=== PATIENT | female | born 1960 | race Caucasian/White ===

== ENCOUNTER 2017-02-25 10:32 | Observation (INO) | payer OTHER ==
--- NOTE | 2017-02-25 11:14 | PDOC ---
History of Present Illness - General Chief Complaint: Respiratory Stated Complaint: PAIN Time Seen by Provider: 02/25/17 11:10 History Source: Patient - History of Present Illness Initial Comments: 02/25/17 12:01 Patient is a 56 y.o. female with a PMH of Asthma (no intubations, 1 hospitalization 15 years previous) who presents to our ED c/o 3 day h/o intermittent dyspnea (not related to exertion) was well as productive (greenish sputum) cough. Patient denies any subjective fevers/chills as well as chest pain. Patient notes recent travel on 02/19/17 from the [place] as well as asthma treatment earlier this month with 5 day course of steroid completed 02/12/17. Allergy: Penicillin Past History - Past Medical History Allergies/Adverse Reactions: Allergies Allergy/AdvReac Type Severity Reaction Status Date / Time Penicillins Allergy Verified 02/25/17 10:49 Home Medications: Ambulatory Orders Azithromycin [Zithromax -] 250 mg PO DAILY 4 Days #4 tablet 02/25/17 - Suicide/Smoking/Psychosocial Hx Smoking History: Never smoked Review of Systems - Review of Systems Constitutional: No: Chills, Fever Respiratory: Yes: Shortness of Breath, Productive cough Cardiac (ROS): No: Chest Pain ABD/GI: No: Constipated, Diarrhea, Nausea, Vomiting *Physical Exam - Vital Signs Last Vital Signs Temp Pulse Resp BP Pulse Ox 98.6 F 94 H 20 177/93 95 02/25/17 10:49 02/25/17 10:49 02/25/17 10:49 02/25/17 10:49 02/25/17 10:49 - Physical Exam General Appearance: Yes: Nourished, Obese HEENT: positive: EOMI, ADDI Neck: positive: Tender, Supple. negative: Lymphadenopathy (R), Lymphadenopathy (L) Respiratory/Chest: positive: Lungs Clear, Normal Breath Sounds. negative: Crackles, Rales, Rhonchi, Wheezing Cardiovascular: positive: S1, S2 ED Treatment Course - LABORATORY CBC & Chemistry Diagram: 02/25/17 11:55 02/25/17 11:55 Medical Decision Making - Medical Decision Making 02/25/17 12:33 Patient is a 56 y.o. female who presents to the ED c/o 3 day h/o productive cough + dyspnea. Initial clinical suspicion for pneumonia vs. bronchitis, less likely asthma exacerbation as patient's lungs CLTA B/L. PERC 1+ w/ h/o recent travel + increased estrogen 2/2 to menopause. Will obtain CXR + D-dimer. Reassess. 02/25/17 14:03 CXR shows no infiltrate/no consolidation. D-dimer 739. Will send for CTA. Patient and patient's partner @ bedside counseled on plan of care. 02/25/17 17:42 CTA negative for PE, however poor contrast 2/2 to patient's girth. Patient was ready for D/C however patient tachycardic on 2 readings-- likely 2/2 to asthma exacerbation. Will give Mg+ Steroids + IV NS and admit for observation. *DC/Admit/Observation/Transfer Diagnosis at time of Disposition: Bronchitis - Discharge Dispostion Disposition: HOME Condition at time of disposition: Good Admit: No - Prescriptions Prescriptions: Azithromycin [Zithromax -] 250 mg PO DAILY 4 Days #4 tablet - Referrals - Patient Instructions Printed Discharge Instructions: DI for Acute Bronchitis - Post Discharge Activity
[2017-02-25] MEDS ORDERED: SODIUM CHLORIDE 0.9% 1000 ML INFUS.BAG IV ONE (11:16)
--- NOTE | 2017-02-25 12:03 | PDOC ---
Attending Attestation - Resident Resident Name: Samina Wynne - ED Attending Attestation I have performed the following: I have examined & evaluated the patient, The case was reviewed & discussed with the resident, I agree w/resident's findings & plan, Exceptions are as noted - HPI HPI: 02/25/17 12:14 56yo F hx asthma (on daily advair, steroids/antibiotics multiple times per year , last admitted 20yrs ago, no intubatons) p/w prod cough, and SOB. No fevers or CP. Recent travel 02/19 from . Last asthma exacerbation was 02/09/17, got 5 days of steroids. Tried albuterol at home with no improvement, but states pump is nearly empty. No fevers or chills. No CP, abd pain, n/v/d, LE swelling or calf pain. - Physicial Exam PE: 02/25/17 13:31 GENERAL: Awake, alert, and fully oriented, in no acute distress. Obese. HEAD: No signs of trauma EYES: PERRLA, EOMI, sclera anicteric, conjunctiva clear ENT: Auricles normal inspection, hearing grossly normal, nares patent, oropharynx clear without exudates. Moist mucosa NECK: Normal ROM, supple, no lymphadenopathy, JVD, or masses LUNGS: Breath sounds equal, clear to auscultation bilaterally. No wheezes, and no crackles HEART: Regular rate and rhythm, normal S1 and S2, no murmurs, rubs or gallops ABDOMEN: Soft, nontender, normoactive bowel sounds. No guarding, no rebound. No masses EXTREMITIES: Normal range of motion, no edema. No clubbing or cyanosis. No cords, erythema, or tenderness. No calf tenderness NEUROLOGICAL: Normal speech, cranial nerves intact, negative pronator drift, 5/ 5 strength in all 4 extremities, normal sensation to light touch in all 4 extremities, normal cerebellar exam, normal gait, normal reflexes and tone SKIN: Warm, Dry, normal turgor, no rashes or lesions noted. - Medical Decision Making 02/25/17 13:31 56-year-old female with a history of asthma presents with shortness of breath and cough. Vitals unremarkable. Exam unremarkable, patient has clear lungs. Symptoms are likely due to viral syndrome and possible bronchitis vs PNA. Given recent travel, PE is on the differential. Will obtain dimer. 02/25/17 22:11 dimer +, CT negative for PE but reveals multiple nodules and LAD. Results discussed w patients. Pt reported feeling better and lungs sounded clear, however upon vitals recheck, pt was tachycardic to 115 and hypoxic to 94%. As such, we prescribed nebs and steroids and admitted the patient to obs for further management
[2017-02-25 12:11] LABS: BASO % 0.7 % (0-2.0); EOS % 1.9 % (0-4.5); HEMATOCRIT 50.4 % (32.4-45.2); HEMOGLOBIN 16.1 GM/dL (10.7-15.3); LYMPH % 15.7 % (8-40); MCH 29.5 pg (25.7-33.7); MEAN CELL VOLUME 92.3 fl (80-96); MEAN PLT VOLUME 8.6 fl (7.5-11.1); NEUT % 66.7 % (42.8-82.8); PLATELET COUNT 250 K/MM3 (134-434); RBC 5.45 M/mm3 (3.60-5.2); WHITE BLOOD COUNT 7.2 K/mm3 (4.0-10.0)
[2017-02-25 12:22] LABS: CHLORIDE 104 mmol/L (98-107); POTASSIUM 4.6 mmol/L (3.5-5.1); SODIUM 139 mmol/L (136-145)
[2017-02-25 12:26] LABS: ALBUMIN 3.8 g/dl (3.4-5.0); ANION GAP 8 (8-16); BLOOD UREA NITROGEN 13 mg/dL (7-18); CALCIUM 8.9 mg/dL (8.5-10.1); CO2 27 mmol/L (21-32); GLUCOSE,RANDOM 94 mg/dL (74-106)
[2017-02-25 12:28] LABS: SGOT/AST 26 U/L (15-37)
[2017-02-25 12:38] LABS: ALK PHOS 103 U/L (45-117); BILIRUBIN,TOTAL 0.8 mg/dL (0.2-1.0); SGPT/ALT 31 U/L (12-78); TOT PROT 7.7 g/dl (6.4-8.2)
--- NOTE | 2017-02-25 16:12 | EKG ---
Test Reason : Blood Pressure : / mmHG Vent. Rate : 088 BPM Atrial Rate : 088 BPM P-R Int : 170 ms QRS Dur : 084 ms QT Int : 366 ms P-R-T Axes : 032 -08 103 degrees QTc Int : 442 ms NORMAL SINUS RHYTHM POSSIBLE LEFT ATRIAL ENLARGEMENT LEFT VENTRICULAR HYPERTROPHY WITH REPOLARIZATION ABNORMALITY ABNORMAL ECG NO PREVIOUS ECGS AVAILABLE Confirmed by CLAY LARA MD ([id number]) on 02/25/2017 4:12:33 PM Referred By: Confirmed By:CLAY LARA MD
[2017-02-25] MEDS ORDERED: AZITHROMYCIN 250 MG TABLET PO ONE (17:22)
[2017-02-25] MEDS ORDERED: MAGNESIUM SULF 50% (8.12 MEQ/2 ML-1 GM VIAL) IVPB ONE (17:32)
[2017-02-25] MEDS ORDERED: SODIUM CHLORIDE 0.9% 500 ML INFUS.BAG IV ONE (17:32)
[2017-02-25] MEDS ORDERED: methylPREDNISolone NA SUCC 40 MG/1 ML VIAL IVPUSH ONE (17:33)
[2017-02-25] MEDS ORDERED: methylPREDNISolone NA SUCC 125 MG/2 ML VIAL IVPB ONE (17:34)
[2017-02-25] MEDS ORDERED: AZITHROMYCIN 500 MG TABLET ONE (19:13)
[2017-02-25] MEDS ORDERED: methylPREDNISolone NA SUCC 125 MG/2 ML VIAL ONE (19:14)
[2017-02-25] MEDS ORDERED: MAGNESIUM SULF 50% (8.12 MEQ/2 ML-1 GM VIAL) ONE (19:14)
[2017-02-25] MEDS ORDERED: ALBUTEROL SO4 18 GM HFA INHALER IH PRN (22:51)
--- NOTE | 2017-02-25 22:54 | PN ---
Teaching Attending Note Name of Resident: Thao Camargo ATTENDING PHYSICIAN STATEMENT I saw and evaluated the patient. I reviewed the resident's note and discussed the case with the resident. I agree with the resident's findings and plan as documented. SUBJECTIVE: 56 year old female with history of asthma and JAYLENE presents with wheeing and SOB No prior history of intubation OBJECTIVE: Vital Signs Temperature 98.6 F 02/25/17 10:49 Pulse Rate 94 H 02/25/17 10:49 Respiratory Rate 20 02/25/17 10:49 Blood Pressure 177/93 02/25/17 10:49 O2 Sat by Pulse Oximetry (%) 95 02/25/17 10:49 CVS S1 S2 WNL RS poor air entry b/l no wheeing CBC, BMP 02/25/17 11:55 02/25/17 11:55 ASSESSMENT AND PLAN: Acute asthma exacerbation likely precipitated by URI - nebs around the clock - O2 - Steroids PO and taper - peek flow in am ( baseline 325) Pulmonary nodule and b/l hilar lymphadenopathy ( possibly reactive) - outpatient follow up and imaging in 3 month
[2017-02-25] MEDS ORDERED: ALBUTEROL SO4 0.083% IH SOL 2.5 MG/3 ML VIAL.NEB. NEB PRN (22:56)
[2017-02-25] MEDS ORDERED: IPRATROPIUM BR 0.02% 0.5 MG/2.5 ML VIAL.NEB. NEB PRN (22:56)
[2017-02-25] MEDS ORDERED: ALBUTEROL SO4 2.5/IPRATROPIUM 0.5 INH SOL 3 ML VIAL.NEB. NEB PRN (23:00)
--- NOTE | 2017-02-25 23:00 | HP ---
CHIEF COMPLAINT: chest tightness, productive cough PCP: HISTORY OF PRESENT ILLNESS: 56 y/o F with PMH asthma (dx 25 yrs ago; never hospitalized, never intubated), past respiratory infection tx with azithromycin (April 2016 in [place]), who presented to the ED with chest tightness and productive cough for the past three days. As per pt, chest tightness began suddenly three days ago and was mildly alleviated with extra puffs of her seratide inhaler. During this time, pt also endorsed pale green sputum that became dark green/brown, however pt denied hemoptysis. Pt recently traveled here from the [place] (8 hr flight). Denied MAYERS, fever, chills, or changes in urinary or bowel function. ER course was notable for: (1) Zithromax 500mg x 1 (2) Solumedrol 40mg IVP x 1, solumedrol 125mg IVPB x 1 (3) CTA: no evidence central PE, no peripheral PE Recent Travel: yes; from the . 8 hr flight Returned February 19, 2017 PAST MEDICAL HISTORY: asthma (dx 25 yrs ago; never hospitalized, never intubated ), past respiratory infection tx with azithromycin (April 2016 in ) PAST SURGICAL HISTORY: none Social History: Smoking:denies Alcohol: socially Drugs: denies Family History: Father- dementia, DM. mother : arthritis Allergies Penicillins Allergy (Verified 02/25/17 10:49) allergic rxn: emesis, rash HOME MEDICATIONS: Home Medications Medication Instructions Recorded Albuterol Sulfate Inhaler - 1 - 2 inh PO QID PRN 02/25/17 [Ventolin Hfa Inhaler -] Azithromycin [Zithromax -] 250 mg PO DAILY 4 Days #4 tablet 02/25/17 Beclomethasone Dipropionate 25 gm NS BID 02/25/17 [Beconase Aq] Salmeterol/Fluticasone [Advair 1 inh PO BID 02/25/17 500Mcg/50Mcg] REVIEW OF SYSTEMS CONSTITUTIONAL: Absent: fever, chills, diaphoresis, generalized weakness, malaise, loss of appetite, weight change HEENT: Absent: rhinorrhea, nasal congestion, throat pain, throat swelling, difficulty swallowing, mouth swelling, ear pain, eye pain, visual changes CARDIOVASCULAR: Absent: chest pain, syncope, palpitations, irregular heart rate, lightheadedness , peripheral edema RESPIRATORY: +cough, SOB Absent: cough, shortness of breath, dyspnea with exertion, orthopnea, wheezing, stridor, hemoptysis GASTROINTESTINAL: Absent: abdominal pain, abdominal distension, nausea, vomiting, diarrhea, constipation, melena, hematochezia GENITOURINARY: Absent: dysuria, frequency, urgency, hesitancy, hematuria, flank pain, genital pain MUSCULOSKELETAL: Absent: myalgia, arthralgia, joint swelling, back pain, neck pain SKIN: Absent: rash, itching, pallor HEMATOLOGIC/IMMUNOLOGIC: Absent: easy bleeding, easy bruising, lymphadenopathy, frequent infections ENDOCRINE: Absent: unexplained weight gain, unexplained weight loss, heat intolerance, cold intolerance NEUROLOGIC: Absent: headache, focal weakness or paresthesias, dizziness, unsteady gait, seizure, mental status changes, bladder or bowel incontinence PSYCHIATRIC: Absent: anxiety, depression, suicidal or homicidal ideation, hallucinations. PHYSICAL EXAMINATION Vital Signs - 24 hr 02/25/17 10:49 Temperature 98.6 F Pulse Rate 94 H Respiratory 20 Rate Blood Pressure 177/93 O2 Sat by Pulse 95 Oximetry (%) GENERAL: Sitting comfortably on side of bed. Awake, alert, and fully oriented, in no acute distress. HEAD: Normal with no signs of trauma. EYES: Pupils equal, round and reactive to light, extraocular movements intact, sclera anicteric, conjunctiva clear. NECK: Normal range of motion, supple without lymphadenopathy, JVD, or masses. LUNGS: Breath sounds equal, clear to auscultation bilaterally. No wheezes, and no crackles. No accessory muscle use. HEART: Regular rate and rhythm, normal S1 and S2 without murmur, rub or gallop. ABDOMEN: Soft, obese, nontender, not distended, normoactive bowel sounds, no guarding, no rebound, no masses. MUSCULOSKELETAL: Normal range of motion at all joints. No bony deformities or tenderness. No CVA tenderness. LOWER EXTREMITIES: 2+ posterior tibial pulses, warm, well-perfused. No calf tenderness. 1+ pitting edema in lower extremities NEUROLOGICAL: Cranial nerves II-XII intact. Laboratory Results - last 24 hr 02/25/17 02/25/17 02/25/17 11:55 11:55 11:55 WBC 7.2 RBC 5.45 H Hgb 16.1 H Hct 50.4 H MCV 92.3 MCH 29.5 MCHC 32.0 RDW 17.0 H Plt Count 250 MPV 8.6 Neutrophils % 66.7 Lymphocytes % 15.7 Monocytes % 15.0 H Eosinophils % 1.9 Basophils % 0.7 D-Dimer 739 H Sodium 139 Potassium 4.6 Chloride 104 Carbon Dioxide 27 Anion Gap 8 BUN 13 Creatinine 1.0 Creat Clearance w eGFR 57.78 Random Glucose 94 Calcium 8.9 Total Bilirubin 0.8 AST 26 ALT 31 Alkaline Phosphatase 103 Total Protein 7.7 Albumin 3.8 Micro -Flu swab: negative Radio -CXR: without acute pathology -CTA: no evidence central PE, no peripheral PE, nonspecific enlarged hilar and mediastinal LN's. nonspecific 0.4 cm LLL pulm nodule ASSESSMENT/PLAN: #asthma exacerbation 2/2 URI, bronchitis -peak flow measurement -02 as needed -duonebs q4h PRN -continue home meds: seratide BID, beconase BID, ventolin PRN -prednisone 40mg PO qd. start prednisone taper #LLL pulm nodule -outpatient f/u #Prophylaxis DVT: early ambulation GI: protonix 20mg qd #F/E/N -monitor electrolytes -sodium controlled diet #Disposition -observation Visit type - Emergency Visit Emergency Visit: Yes ED Registration Date: 02/25/17 Care time: The patient presented to the Emergency Department on the above date and was hospitalized for further evaluation of their emergent condition. - New Patient This patient is new to me today: Yes Date on this admission: 02/25/17 - Critical Care Critical Care patient: No
[2017-02-26] MEDS ORDERED: PANTOPRAZOLE 20 MG TABLET (FP) PO SCH (10:00)
[2017-02-26] MEDS ORDERED: FLUTICASONE PROP 0.05% 16 GM NASAL SPRAY NS SCH (10:00)
[2017-02-26] MEDS ORDERED: BUDESONIDE/FORMETEROL FUMARATE 160/4.5 mcg INHALER IH SCH (10:00)
[2017-02-26] MEDS ORDERED: predniSONE 20 MG TABLET (UD) PO SCH (10:00)
[2017-02-26] MEDS ORDERED: AZITHROMYCIN IVPB 250 MG in DEXTROSE 5%-WATER - 250 ML IVPB ONE (10:06)
[2017-02-26 12:26] VITALS: PULSE 108
--- NOTE | 2017-02-26 14:04 | PN ---
Teaching Attending Note Name of Resident: Dimitri Gonzalez ATTENDING PHYSICIAN STATEMENT time of evaluation: 9:30 AM I saw and evaluated the patient. I reviewed the resident's note and discussed the case with the resident. I agree with the resident's findings and plan as documented. SUBJECTIVE: Patient seen and examined. breathing markedly improved, eager to go home. OBJECTIVE: Vital Signs Period Temp Pulse Resp BP Sys/Garcia Pulse Ox Last 24 Hr 97.8 F-98.2 F 80-108 20-20 151-184/74-94 91-94 Intake & Output 02/23/17 02/24/17 02/25/17 02/26/17 23:59 23:59 23:59 23:59 Weight 300 lb General: sitting in bed in no acute distress Chest: good air entry bilaterally, no rales or wheezing appreciated Abdomen: soft, obese, NT extremities: obese, no edema Home Medication List Medication Instructions Recorded Confirmed Type Albuterol Sulfate Inhaler - 1 - 2 inh PO QID PRN 02/25/17 02/25/17 History [Ventolin HFA Inhaler -] Active Medications Generic Name Dose Route Start Last Admin Trade Name Freq PRN Reason Stop Dose Admin Albuterol Sulfate 2 puff 02/25/17 22:51 Ventolin Hfa Inhaler - IH Q6H PRN SHORTNESS OF BREATH Albuterol/Ipratropium 1 amp 02/25/17 23:00 Duoneb - NEB Q4H PRN SHORTNESS OF BREATH Budesonide/Formoterol Fumarate 2 puff 02/26/17 10:00 02/26/17 10:19 Symbicort 160/4.5mcg - IH Not Given BID MAUREEN Fluticasone Propionate 1 spray 02/26/17 10:00 02/26/17 10:19 Flonase - NS Not Given BID MAUREEN Pantoprazole Sodium 20 mg 02/26/17 10:00 02/26/17 10:19 Protonix - PO 20 mg DAILY MAUREEN Administration Prednisone 40 mg 02/26/17 10:00 02/26/17 10:19 Deltasone - PO 40 mg DAILY MAUREEN Administration Laboratory Results - last 24 hr 02/26/17 02/26/17 02/26/17 02:50 06:44 12:28 POC Glucometer 174.15700 124 148.39232 Microbiology 02/25/17 11:55 Nasopharyngeal Swab Influenza Types A,B Antigen (NGOC) - Final 02/25/17 11:55 Nasopharyngeal Swab - Final ASSESSMENT AND PLAN: -Acute asthma exacerbation -URI like illness -Morbid obesity Plan: oxygenating well on room air with ambulation. symptoms improved. D/c on prednisone taper and azithromycin. Blood sugars 120s-140s, patient informed, will need outpatient monitoring. D/c home today.
[2017-02-26 14:11] VITALS: BP 150/94; TEMP 98
[2017-02-26 14:20] VITALS: BMI 39.2
--- NOTE | 2017-02-26 15:50 | DS ---
Physical Exam: SUBJECTIVE: Patient seen and examined OBJECTIVE: Vital Signs Period Temp Pulse Resp BP Sys/Garcia Pulse Ox Last 24 Hr 97.8 F-98.2 F 80-108 20-20 150-184/74-94 91-94 PHYSICAL EXAM GENERAL: Obese. The patient is awake, alert, and fully oriented, in no acute distress. HEAD: Normal with no signs of trauma. EYES: PERRL, extraocular movements intact, sclera anicteric, conjunctiva clear. ENT: oropharynx clear without exudates, moist mucous membranes. NECK: supple. LUNGS: Breath sounds equal, clear to auscultation bilaterally, no wheezes, no crackles, no accessory muscle use. HEART: Regular rate and rhythm, S1, S2 without murmur, rub or gallop. ABDOMEN: Soft, nontender, nondistended, normoactive bowel sounds EXTREMITIES: 2+ pulses, warm, well-perfused, no edema, cyanosis PSYCH: Normal mood, normal affect. LABS Laboratory Results - last 24 hr 02/26/17 02/26/17 02/26/17 02:50 06:44 12:28 POC Glucometer 174.53053 [phone] HOSPITAL COURSE: Date of Admission:02/25/17 56 y/o F with PMH asthma (dx 25 yrs ago; never hospitalized, never intubated), who presented to the ED with chest tightness and productive cough for the past three days and was admitted for observation for acute asthma exacerbation. As per pt, chest tightness began suddenly three days ago and was mildly alleviated with extra puffs of her seratide inhaler. During this time, pt also endorsed pale green sputum that became dark green/brown, however pt denied hemoptysis. Patient was treated with Antibiotics (zithromax 500mg) and IV solumedrol. CTA was negative for PE. After breathing treatments with duonebs, oxygen and patient home meds (seratide, beconase, ventolin) patient clinically improved. 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 Date of Discharge: 02/26/17 Minutes to complete discharge: 35 Discharge Summary Reason For Visit: EXACERBATION OF ASTHMA Condition: Good - Instructions Diet, Activity, Other Instructions: You were admitted for evaluation and treatment of Asthma exacerbation. You do not have Pneumonia or Flu. Please take following medication: 1. Azithromycin 250 mg per oral fo 3 more days. 2. Continue Symbicort nebs 3. Flonase BID 4. Tapering dose of Prednisone (steroids) Prednisone 40mg x 2 more days Prednisone 30mg x 2 more days Prednisone 20mg x 2 more days Prednisone 10mg x 2 more days. Please f/up with the primary doctor in a week. Please follow up with a doctor or come to ED to get your blood sugars checked in 2-3 days as you might have prediabetes and will need monitoring of the same. Currently your blood sugars have been in 120s-140s range and will need monitoring outpatient. Return to the Emergency Department if your symptoms get worse or if you develop any new symptoms. Referrals: Jose Kay MD [Staff Physician] - Disposition: HOME - Home Medications Comprehensive Discharge Medication List: Ambulatory Orders Albuterol Sulfate Inhaler - [Ventolin HFA Inhaler -] 1 - 2 inh PO QID PRN Azithromycin [Zithromax 250mg Tablets -] 250 mg PO DAILY #3 tab 02/26/17 Budesonide/Formeterol Fumarate [SYMBICORT 160/4.5mcg -] 2 puff IH BID #1 inhaler 02/26/17 Fluticasone Prop 0.05% Nasal [Flonase -] 1 spray NS BID #1 spray 02/26/17 Prednisone [Deltasone -] See Taper PO DAILY #8 tablet 02/26/17 This patient is new to me today: Yes Date on this admission: 02/26/17 Emergency Visit: Yes ED Registration Date: 02/25/17 Care time: The patient presented to the Emergency Department on the above date and was hospitalized for further evaluation of their emergent condition. Critical Care patient: No - Discharge Referral Referred to [facility] No
== END 2017-02-26 15:25 | disposition home or self-care (01) ==
LOC: JER 10:32 → JERBED 18:31
PROVIDERS: ADMIT Internal Medicine; ATTEND Hospitalist
PROC: 3E0333Z Introduction of Anti-inflammatory into Peripheral Vein, Percutaneous Approach (ICD-10-PCS; principal; 2017-02-25)
PROC: 3E033GC Introduction of Other Therapeutic Substance into Peripheral Vein, Percutaneous Approach (ICD-10-PCS; 2017-02-25)
PROC: 3E0337Z Introduction of Electrolytic and Water Balance Substance into Peripheral Vein, Percutaneous Approach (ICD-10-PCS; 2017-02-25)
DX: J45.901 Unspecified asthma with (acute) exacerbation (principal); J20.9 Acute bronchitis, unspecified; J06.9 Acute upper respiratory infection, unspecified; R00.0 Tachycardia, unspecified; Z88.0 Allergy status to penicillin; R91.1 Solitary pulmonary nodule; E66.01 Morbid (severe) obesity due to excess calories; Z68.39 Body mass index [BMI] 39.0-39.9, adult
CPT/HCPCS: 36415; 71046-TC; 71275-TC; 80053; 82962; 85025; 85379; 87804; 93005; 93010; 94761; 99284-25; G0378